=== PATIENT | male | born 1960 | race Caucasian/White ===

== ENCOUNTER 2016-10-22 22:51 | Emergency (ER) | payer OTHER ==
[2016-10-22] MEDS ORDERED: SUBLIMAZE 100 MCG/2 ML IM ONE (23:13)
[2016-10-22] MEDS ORDERED: BENADRYL 50 MG/ML IM ONE (23:13)
--- NOTE | 2016-10-22 23:19 | ERPHSYRPT ---
- History of Present Illness Time Seen by Provider: 10/22/16 23:14 Source: patient, family Exam Limitations: no limitations Patient Subjective Stated Complaint: pt states he had spinal stimulator implanted on 08/27/[address] rush in [facility]. states he was released to go back to work on 10/06/16 and his pain has been increasing since then Triage Nursing Assessment: pt alert and oriented, answers questions approp. skin pink warm and dry. respirations nonlabored with lungs cta. pt states that he has been feeling like his legs are weak. pt able to lift legs off the bed without diff. cap refill and pedal pulses wnl bilat. +1 nonpitting edema noted to bilat ankles and feet. Physician History: pt states he had spinal stimulator implanted on 08/27/[address] rush in [facility]. states he was released to go back to work on 10/06/16 and his pain has been increasing since then. pt states that he has been feeling like his legs are weak. pt able to lift legs off the bed without diff. Timing/Duration: day(s) Quality: burning Back Pain Radiation: feet Severity of Pain-Max: severe Severity of Pain-Current: severe Modifying Factors: Improves With: nothing Associated Symptoms: denies symptoms Allergies/Adverse Reactions: Penicillins Allergy (Severe, Verified 05/27/15 07:38) Hives zolpidem [From Ambien] Adverse Reaction (Verified 10/22/16 23:05) Home Medications: Levothyroxine Sodium 100 Mcg [Synthroid 100 Mcg] 100 mcg PO DAILY 10/31/13 [History] Rosuvastatin Calcium [Crestor] 10 mg PO HS 10/31/13 [History] Gabapentin [Neurontin] 300 mg PO TID 12/18/15 [History] Desvenlafaxine Succinate [Pristiq ER] 50 mg PO HS 10/22/16 [History] Eszopiclone [Lunesta] 3 mg PO HS PRN PRN 10/22/16 [History] Lisinopril 5 mg [Zestril 5 MG] 5 mg PO DAILY 10/22/16 [History] Hx Tetanus, Diphtheria Vaccination/Date Given: Yes Hx Influenza Vaccination/Date Given: Yes Hx Pneumococcal Vaccination/Date Given: No Immunizations Up to Date: Yes - Review of Systems Constitutional: No Symptoms Eyes: No Symptoms Ears, Nose, & Throat: No Symptoms Respiratory: No Symptoms Cardiac: No Symptoms Abdominal/Gastrointestinal: No Symptoms Genitourinary Symptoms: No Symptoms Musculoskeletal: Back Pain Skin: No Symptoms Neurological: Parasthesia Psychological: Anxiety, Depression - Past Medical History Pertinent Past Medical History: Yes Neurological History: No Pertinent History ENT History: No Pertinent History Cardiac History: High Cholesterol, Hypertension Respiratory History: Bronchitis Endocrine Medical History: Hypothyroidism Musculoskeletal History: Other GI Medical History: No Pertinent History History: No Pertinent History Psycho-Social History: No Pertinent History Male Reproductive Disorders: No Pertinent History Other Medical History: 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 lt si joint repaired, spinal stimlator implanted 08/27/16 - Social History Smoking Status: Never smoker Exposure to second hand smoke: No Drug Use: none Patient Lives Alone: No - Nursing Vital Signs Temperature: 97.7 F Temperature Source: Oral Pulse Rate: 66 Respiratory Rate: 18 Pain Intensity: 7 - Physical Exam General Appearance: mild distress Eye Exam: PERRL/EOMI Ears, Nose, Throat Exam: normal ENT inspection Neck Exam: normal inspection Respiratory Exam: normal breath sounds Back Exam: decreased range of motion, muscle spasm Neurologic Exam: sensory deficit, depressed mood/affect Skin Exam: normal color SpO2: 99 Oxygen Delivery: Room Air - Course Nursing assessment & vital signs reviewed: Yes Ordered Tests: Medication Summary Generic Name Dose Route Start Last Admin Trade Name Freq PRN Reason Stop Dose Admin Diphenhydramine HCl 50 mg 10/22/16 23:13 Benadryl 50 Mg/Ml IM 10/22/16 23:14 STAT ONE Fentanyl Citrate 100 mcg 10/22/16 23:13 Sublimaze 100 Mcg/2 Ml IM 10/22/16 23:14 STAT ONE - Progress Progress: improved, pain not gone completely Counseled pt/family regarding: diagnosis, need for follow-up - Departure Time of Disposition: 23:17 Departure Disposition: Home Clinical Impression: Chronic back pain greater than 3 months duration Sciatica neuralgia Qualifiers: Laterality: left Qualified Code(s): M54.32 - Sciatica, left side Condition: Stable Critical Care Time: No Referrals: MARGARET FRASER MD [Primary Care Provider] - Instructions: Low Back Pain Additional Instructions: Please follow the instructions given to you. Please take your medication as prescribed if given. If symptoms recur or get worse, come back to the emergency room if you cannot reach your primary care physician, or call your primary care physician for an appointment. Again if your symptoms get worse, come back to the emergency room. Thanks for visiting emergency room, and let us take care of you.
[2016-10-22] MEDS ORDERED: SUBLIMAZE 100 MCG/2 ML ONE (23:26)
[2016-10-22] MEDS ORDERED: BENADRYL 50 MG/ML ONE (23:26)
[2016-10-23 00:08] VITALS: BP 116/75; PULSE 61; O2SAT 98
== END 2016-10-23 00:11 | disposition home or self-care (01) ==
LOC: ED 22:51
DX: M54.32 Sciatica, left side (principal); M54.9 Dorsalgia, unspecified; G89.29 Other chronic pain; Z79.899 Other long term (current) drug therapy
CPT/HCPCS: 96372; 99284; J1200; J3010

== ENCOUNTER 2017-12-01 17:40 | Emergency (ER) | payer OTHER ==
--- NOTE | 2017-12-01 18:01 | ERPHSYRPT ---
- History of Present Illness Source: patient Exam Limitations: no limitations Patient Subjective Stated Complaint: Swelling in legs, vomiting, weakness Triage Nursing Assessment: Pt presents to the ED with complaints of bilateral leg swelling, sweakness, facial swelling, and vomiting. Pt states he was seen by PCP for complaint and was given lasix. Pt states improvement in symptoms after lasix. pitting edema noted to bilateral ankles and feet, pt states "mild compared to yesterday." No distress noted. Hx Tetanus, Diphtheria Vaccination/Date Given: Yes Hx Influenza Vaccination/Date Given: Yes Hx Pneumococcal Vaccination/Date Given: No Immunizations Up to Date: Yes <JAMES NOONAN - Last Filed: 12/01/17 18:31> <LENORA LOPEZ - Last Filed: 12/01/17 20:13> - History of Present Illness Time Seen by Provider: 12/01/17 17:58 Physician History: mild to mod edema bilateral extremities and face for a few days getting worse, hx lasix, +MONTEIRO and fatigue, no pain, hx htn (JAMES NOONAN) Allergies/Adverse Reactions: Penicillins Allergy (Severe, Verified 05/27/15 07:38) Hives zolpidem [From Ambien] Adverse Reaction (Verified 10/22/16 23:05) Home Medications: Levothyroxine Sodium 100 Mcg [Synthroid 100 Mcg] 100 mcg PO DAILY 10/31/13 [History] Rosuvastatin Calcium [Crestor] 10 mg PO HS 10/31/13 [History] Furosemide 20 mg [Lasix 20 mg] 20 mg PO DAILY 12/01/17 [History] Nebivolol HCl 5 MG [Bystolic 5 MG] 5 mg PO DAILY 12/01/17 [History] - Review of Systems Constitutional: Fatigue, No Fever Eyes: No Eye Redness Ears, Nose, & Throat: No Throat Pain Respiratory: Dyspnea on Exertion (MONTEIRO), No Cyanosis, No Stridor Cardiac: No Chest Pain Abdominal/Gastrointestinal: No Abdominal Pain Skin: No Rash Neurological: No Dizziness <JAMES NOONAN - Last Filed: 12/01/17 18:31> - Past Medical History Pertinent Past Medical History: Yes Neurological History: No Pertinent History ENT History: No Pertinent History Cardiac History: High Cholesterol, Hypertension Respiratory History: Bronchitis Endocrine Medical History: Hypothyroidism Musculoskeletal History: Other GI Medical History: No Pertinent History History: No Pertinent History Psycho-Social History: No Pertinent History Male Reproductive Disorders: No Pertinent History Other Medical History: 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 lt si joint repaired, spinal stimlator implanted 08/27/16 - Social History Smoking Status: Never smoker Exposure to second hand smoke: No Drug Use: none Patient Lives Alone: No <JAMES NOONAN - Last Filed: 12/01/17 18:31> - Physical Exam General Appearance: no apparent distress Eye Exam: PERRL/EOMI Ears, Nose, Throat Exam: normal pharynx Neck Exam: normal inspection Respiratory Exam: normal breath sounds Cardiovascular/Chest Exam: normal heart sounds, regular rate/rhythm Abdominal/Gastrointestinal Exam: soft, No tenderness Extremity Exam: swelling Neurologic Exam: alert, oriented x 3, cooperative Skin Exam: normal color, warm, dry SpO2 Interpretation: normal SpO2: 100 Oxygen Delivery: Room Air <JAMES NOONAN - Last Filed: 12/01/17 18:31> - Nursing Vital Signs Nursing Vital Signs: Initial Vital Signs Temperature 97.5 F 12/01/17 17:52 Pulse Rate 60 12/01/17 17:52 Respiratory Rate 16 12/01/17 17:52 Blood Pressure 131/64 12/01/17 17:52 O2 Sat by Pulse Oximetry 100 12/01/17 17:52 Pain Scale Pain Intensity 0 - Course Nursing assessment & vital signs reviewed: Yes EKG Interpreted by Me: RATE (53 bpm), Sinus [place], NORMAL AXIS, Other (EKG: Sinus bradycardia, 53 beats for minute, normal axis, no acute ST or T wave changes noted) - Radiology Exams Chest X-ray Interpretation: Interpreted by me, Negative, Other (no acute disease process noted) <LENORA LOPEZ - Last Filed: 12/01/17 20:13> Ordered Tests: Active Orders 24 hr Category Date Time Status Bookkeeper Assistant STAT Care 12/01/17 17:56 Active EKG-ER Only STAT Care 12/01/17 17:55 Active IV Insertion STAT Care 12/01/17 17:55 Active CHEST 1 VIEW (PORTABLE) Stat Exams 12/01/17 17:56 Taken CBC W DIFF Stat Lab 12/01/17 18:27 Completed CK-Creatinine Phosphokinase Routine Lab 12/01/17 18:27 Completed CMP Routine Lab 12/01/17 18:27 Completed D-DIMER QUANTITATION Stat Lab 12/01/17 18:27 Completed NT PRO BNP Routine Lab 12/01/17 18:27 Completed PROTIME WITH INR Stat Lab 12/01/17 18:27 Completed TROPONIN Q3H Lab 12/01/17 18:27 Completed TROPONIN Q3H Lab 12/01/17 21:00 Ordered TROPONIN Q3H Lab 12/02/17 00:00 Ordered TROPONIN Q3H Lab 12/02/17 03:00 Ordered TROPONIN Q3H Lab 12/02/17 06:00 Ordered TSH [TSH, 3RD Generation] Stat Lab 12/01/17 20:04 Ordered Urine Triage Profile Stat Lab 12/01/17 17:56 Ordered Lab/Rad Data: Laboratory Result Diagrams 12/01/17 18:27 12/01/17 18:27 Laboratory Results 12/01/17 12/01/17 12/01/17 Range/Units 18:27 18:27 18:27 WBC 4.0 (4.0-10.5) K/mm3 RBC 4.48 (4.1-5.6) M/mm3 Hgb 13.8 (12.5-18.0) gm/dl Hct 40.7 L (42-50) % MCV 90.8 (78-100) fl MCH 30.8 (26-32) pg MCHC 33.9 (32-36) g/dl RDW 14.4 H (11.5-14.0) % Plt Count 168 (150-450) K/mm3 MPV 12.3 H (6-9.5) fl Gran % 50.9 (36.0-66.0) % Eos # (Auto) 0.14 (0-0.5) Absolute Lymphs (auto) 1.47 (1.0-4.6) Absolute Monos (auto) 0.34 (0.0-1.3) Lymphocytes % 36.6 (24.0-44.0) % Monocytes % 8.5 (0.0-12.0) % Eosinophils % 3.5 (0.00-5.0) % Basophils % 0.5 (0.0-0.4) % Absolute Granulocytes 2.05 (1.4-6.9) Basophils # 0.02 (0-0.4) PT 11.1 (8.83-12.87) SECONDS INR 0.95 (0.8-3.0) D-Dimer 440.90 (215-500) ng/mL Sodium 140 (137-145) mmol/L Potassium 4.3 (3.5-5.1) mmol/L Chloride 105 (98-107) mmol/L Carbon Dioxide 26 (22-30) mmol/L Anion Gap 13.8 (5-15) MEQ/L BUN 10 (9-20) mg/dL Creatinine 0.97 (0.66-1.25) mg/dL Estimated GFR > 60.0 ML/MIN Glucose 94 (74-106) mg/dL Calcium 9.1 (8.4-10.2) mg/dL Total Bilirubin 1.50 H (0.2-1.3) mg/dL AST 41 (17-59) U/L ALT 44 (0-50) U/L Alkaline Phosphatase 57 (38-126) U/L Creatine Kinase 161 (55-170) U/L Troponin I < 0.012 (0.000-0.034) ng/mL NT-Pro-B Natriuret Pep 47.7 (0-900) pg/mL Serum Total Protein 6.7 (6.3-8.2) g/dL Albumin 4.0 (3.5-5.0) g/dL <JAMES NOONAN - Last Filed: 12/01/17 18:31> - Progress Progress: improved Air Movement: fair <LENORA LOPEZ - Last Filed: 12/01/17 20:13> - Progress Progress Note: 12/01/17 18:[address] Lopez at 19:00 (JAMES NOONAN) 12/01/17 20:06 This is a 57-year-old white male whose care was transferred to md at 1900 today patient initially seen by Dr. Noonan. Patient arrives with complaint of swelling in his lower extremity swelling in his face shortness of breath with activity going on for 2-3 days patient has been on Lasix which was prescribed to him by his family doctor and he has an appointment at 9:30 tomorrow morning patient is not having chest pain patient with edema to his lower extremities noted by Dr. Nonoan on physical exam Past medical history on this patient includes hypercholesterolemia high blood pressure bronchitis hypothyroidism, leg calf perc disease Past surgical history includes neck surgery back surgery carpal tunnel surgery rotator cuff surgery left SI joint, and spinal stimulator Physical examination reveals well-developed well-nourished white male he is alert oriented 3 Head is atraumatic normocephalic. Eyes PERRLA EOMI fundi are unremarkable. Ears TMs wright intact bilaterally. Nose is clear. Throat is clear. Neck is supple full range of motion. Lungs clear to auscultation and equal bilaterally. Heart bradycardic no murmur peripheral pulses 2 over 4 upper and lower bilaterally. Abdomen soft nontender nondistended positive bowel sounds. Extremities full range of motion pulse equal and symmetrical 2 over 4 perhaps a trace of edema on physical exam lower extremities and ankles (patient states this is markedly improved after elevation of the legs during evaluation) Neuro patient alert oriented 3 cranial nerves II through XII are intact DTRs symmetrical 2 over 4 Glascow coma scale 15 speech is normal. Labs CBC White blood cell count 4.0 hemoglobin 13.8 hematocrit 40.7 chemistry sodium 140 potassium 4.3 chloride 105 bicarbonate 26 BUN 10 creatinine 0.97 glucose 94 troponin less than 0.012 BNP 47.7 d-dimer normal 440 EKG sinus bradycardia 53 bpm otherwise normal EKG no acute ST or T wave changes are noted. Chest x-ray unremarkable. Impression peripheral edema. Exercise intolerance. Bradycardia. Plan patient is on thyroid medications at home also on Lasix. I have offered to give him an injection of Lasix here in the emergency room however he does feel like he is markedly improved and really doesn't want this at this time he states he would prefer to receive this from his family doctor. I have ordered a TSH on this patient. Will have patient follow-up with his family doctor tomorrow morning. Currently the patient is in no distress he is breathing well vitals are stable he has no acute findings on his chest x-ray EKG or labs. Patient does want work slip for [employer] we'll provide this as well as tomorrow morning to facilitate seeing his family doctor. (LENORA LOPEZ) <JAMES NOONAN - Last Filed: 12/01/17 18:31> - Departure Time of Disposition: 20:12 Departure Disposition: Home Critical Care Time: No <LENORA LOPEZ - Last Filed: 12/01/17 20:13> - Departure Clinical Impression: Peripheral edema, Exercise intolerance, History of hypothyroidism, Dependent edema Condition: Fair Referrals: MARGARET FRASER MD [Primary Care Provider] - Additional Instructions: Return home. Rest. Medications as prescribed by your family doctor. Follow-up with your family doctor tomorrow morning as scheduled. Return for acute distress or for severe symptoms.
[2017-12-01 18:38] LABS: BASOPHIL % 0.5 % (0.0-0.4); Basophil (Absolute #) 0.02 (0-0.4); Eosinophil % 3.5 % (0.00-5.0); Eosinophil (Absolute #) 0.14 (0-0.5); Granulocyte Absolute (ANC) 2.05 (1.4-6.9); Granulocytes % 50.9 % (36.0-66.0); Hematocrit 40.7 % (42-50); Hemoglobin 13.8 gm/dl (12.5-18.0); Lymphocyte (Absolute #) 1.47 (1.0-4.6); Lymphocytes % 36.6 % (24.0-44.0); Mean Cell Volume 90.8 fl (78-100); Mean Corpuscular Hemoglobin 30.8 pg (26-32); Mean Corpuscular Hgb Concent. 33.9 g/dl (32-36); Mean Platelet Volume 12.3 fl (6-9.5); Monocyte (Absolute #) 0.34 (0.0-1.3); Monocytes % 8.5 % (0.0-12.0); Platelet Count 168 K/mm3 (150-450); Red Blood Count 4.48 M/mm3 (4.1-5.6); Red Cell Distribution Width 14.4 % (11.5-14.0)
[2017-12-01 18:42] LABS: INR 0.95 (0.8-3.0)
[2017-12-01 18:44] LABS: D-DIMER QUANTITATION 440.9 ng/mL (215-500)
[2017-12-01 18:46] LABS: ALKALINE PHOSPHATASE 57 U/L (38-126); ANION GAP 13.8 MEQ/L (5-15); BLOOD UREA NITROGEN 10 mg/dL (9-20); CHLORIDE 105 mmol/L (98-107); CK-Creatinine Phosphokinase 161 U/L (55-170); Calcium 9.1 mg/dL (8.4-10.2); Carbon Dioxide 26 mmol/L (22-30); Creatinine 1 0.97 mg/dL (0.66-1.25); Glucose 94 mg/dL (74-106); Potassium 4.3 mmol/L (3.5-5.1); SGOT/AST 41 U/L (17-59); SGPT/ALT 44 U/L (0-50); SODIUM 140 mmol/L (137-145); Total Protein 6.7 g/dL (6.3-8.2)
[2017-12-01 18:58] LABS: NT PRO BNP 47.7 pg/mL (0-900)
[2017-12-01 19:05] LABS: TROPONIN < 0.012 ng/mL (0.000-0.034)
[2017-12-01 19:25] VITALS: O2SAT 100
[2017-12-01 20:17] VITALS: BP 138/78; PULSE 48
--- NOTE | 2017-12-02 08:38 | XRAY ---
Indication: Vomiting and dyspnea on exertion. Comparison: June 19, 2013. Portable chest again demonstrates normal heart and lungs. Bony thorax intact again with mild degenerative changes, old right 2nd rib fracture, lower cervical fusion, and new spinal stimulator leads terminating T7 level. Impression: Nonacute chest with chronic features.
== END 2017-12-01 20:25 | disposition home or self-care (01) ==
LOC: ED 17:40
DX: R60.0 Localized edema (principal); R06.02 Shortness of breath; R00.1 Bradycardia, unspecified; Z79.899 Other long term (current) drug therapy; Z86.39 Personal history of other endocrine, nutritional and metabolic disease
CPT/HCPCS: 36000; 36415; 71045; 80053; 82550; 83880; 84443; 84484; 85025; 85379; 85610; 93005; 93041; 99283; 99284

== ENCOUNTER 2022-01-27 09:27 | Emergency (ER) | payer OTHER ==
[2022-01-27 09:47] VITALS: PULSE 62; O2SAT 99
--- NOTE | 2022-01-27 10:05 | XRAY ---
Exam: 3 view right ankle series. Comparison: [None.] Indication: 61-year-old male fell and twisted right ankle; pain. Findings: AP, oblique, and lateral radiographs the right ankle were obtained. There is a transverse fracture of the distal tip of the right fibula with about 3 mm diastasis. There is marked soft tissue swelling overlying lateral malleolus. No other fracture or dislocation is seen. The right ankle mortise is well-preserved and appears uniform. The right hindfoot appears unremarkable. Impression: 1. There is a transverse fracture of the inferior tip of the right fibula, as discussed above. Significant soft tissue swelling overlies the lateral malleolus.
--- NOTE | 2022-01-27 10:44 | ERPHSYRPT ---
- History of Present Illness Time Seen by Provider: 01/27/22 09:55 Source: patient Exam Limitations: no limitations Patient Subjective Stated Complaint: Patient is here with a right ankle injury. States he was playing golf and injured it in a ditch that he didn't see. States, "I heard it pop." This happened today just prior to coming into the ED. Triage Nursing Assessment: Patient brought back to the ED in a wheelchair. He was able to transfer self from w/c to bed but is unable to put weight on his right foot. He is alert and oriented and answering questions appropriately. Right outer ankle is swollen. No bruising noted at this time. Pedal pulse present. Physician History: This is a 61-year-old white male who was golfing this morning and when he stepped out of a cart he rolled his right ankle. He felt and heard a pop sensation and had immediate pain and swelling in his right ankle, lateral aspect. Occurred: just prior to arrival Quality: constant, aching, throbbing Severity of Pain-Max: moderate Severity of Pain-Current: moderate Lower Extremities Pain: ankle: right Modifying Factors: Improves With: movement Associated Symptoms: popping sensation, other (Can bear weight but hurts to do so) Allergies/Adverse Reactions: Penicillins Allergy (Severe, Verified 01/27/22 09:34) Hives zolpidem [From Ambien] Adverse Reaction (Verified 01/27/22 09:34) Home Medications: Levothyroxine Sodium 100 Mcg [Synthroid 100 Mcg] 100 mcg PO DAILY 10/31/13 [History] Rosuvastatin Calcium [Crestor] 10 mg PO HS 10/31/13 [History] Furosemide 20 mg [Lasix 20 mg] 20 mg PO DAILY 12/01/17 [History] Nebivolol HCl 5 MG [Bystolic 5 MG] 5 mg PO DAILY 12/01/17 [History] Oxycodone HCl [Oxycontin] 1 tab PO BID 01/27/22 [History] Hx Tetanus, Diphtheria Vaccination/Date Given: Yes Hx Influenza Vaccination/Date Given: No Hx Pneumococcal Vaccination/Date Given: No Immunizations Up to Date: Yes Travel Risk - International Travel Have you traveled outside of the country in past 3 weeks: No - Coronavirus Screening Are you exhibiting any of the following symptoms?: No Close contact with a COVID-19 positive Pt in past 14-21 Days: No - Vaccine Status Have you recieved a Covid-19 vaccination: Yes 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: [employer] - Vaccination Dates Date of 2cond Vaccination (if applicable): 2020 - Review of Systems Constitutional: No Symptoms Eyes: No Symptoms Ears, Nose, & Throat: No Symptoms Respiratory: No Symptoms Cardiac: No Symptoms Abdominal/Gastrointestinal: No Symptoms Genitourinary Symptoms: No Symptoms Musculoskeletal: Fall (Right ankle), Injury (Right ankle) Skin: No Symptoms Neurological: No Symptoms Psychological: No Symptoms Endocrine: No Symptoms Hematologic/Lymphatic: No Symptoms Immunological/Allergic: No Symptoms All Other Systems: Reviewed and Negative - Past Medical History Pertinent Past Medical History: Yes Neurological History: No Pertinent History ENT History: No Pertinent History Cardiac History: High Cholesterol, Hypertension Respiratory History: Bronchitis Endocrine Medical History: Hypothyroidism Musculoskeletal History: Other GI Medical History: No Pertinent History History: No Pertinent History Psycho-Social History: No Pertinent History Male Reproductive Disorders: No Pertinent History Other Medical History: HAD BONE DISEASE WHEN 5 YEARS OLD DETERORITED L HIP BONE, chronic back pain with stimulator implanted on 08/27/16 - Past Surgical History Past Surgical History: Yes Neuro Surgical History: No Pertinent History Cardiac: No Pertinent History Respiratory: No Pertinent History Gastrointestinal: No Pertinent History Genitourinary: No Pertinent History Musculoskeletal: Orthopedic Surgery, Other Male Surgical History: No Pertinent History Other Surgical History: NECK, BACK, CARPAL TUNNEL, ROTATOR CUFF Lt. lt si joint repaired, spinal stimlator implanted 08/27/16 - Social History Smoking Status: Never smoker Exposure to second hand smoke: No Drug Use: none Patient Lives Alone: No - Nursing Vital Signs Nursing Vital Signs: Initial Vital Signs Temperature 97.5 F 01/27/22 09:35 Pulse Rate 62 01/27/22 09:35 Respiratory Rate 20 01/27/22 09:35 Blood Pressure 179/122 01/27/22 09:35 O2 Sat by Pulse Oximetry 99 01/27/22 09:35 Pain Scale Pain Intensity 7 - Physical Exam General Appearance: no apparent distress, alert, obese Eyes, Ears, Nose, Throat Exam: normal ENT inspection, moist mucous membranes Neck Exam: normal inspection, non-tender, supple, full range of motion Cardiovascular/Respiratory Exam: chest non-tender, no respiratory distress Gastrointestinal/Abdominal Exam: non-tender Back Exam: normal inspection Hips Exam: bilateral: non-tender, normal inspection, normal range of motion, no evidence of injury Legs Exam: bilateral leg: non-tender, normal inspection, normal range of motion, no evidence of injury Knees Exam: bilateral knee: non-tender, normal inspection, normal range of motion, no evidence of injury Ankle Exam: right ankle: bone tenderness, limited range of motion, soft tissue tenderness, other, left ankle: non-tender, normal inspection, normal range of motion, no evidence of injury Foot Exam: bilateral foot: non-tender, normal inspection, normal range of motion, no evidence of injury Neuro/Tendon Exam: normal sensation, normal motor functions, normal tendon functions, responds to pain, no evidence tendon injury Mental Status Exam: alert, oriented x 3 Skin Exam: normal color, warm, dry SpO2 Interpretation: normal SpO2: 99 O2 Delivery: Room Air - Course Nursing assessment & vital signs reviewed: Yes Ordered Tests: Active Orders 24 hr Category Date Time Status ANKLE (3 VIEWS) Routine Exams 01/27/22 09:55 Completed - Progress Progress: unchanged Progress Note: 01/27/22 10:43 X-ray right ankle shows distal fibula with nondisplaced transverse fracture Medical decision making: We were able to obtain an appointment with [facility] orthopedic clinic today. Patient will be transported via wheelchair to their clinic. They will make the final decision on casting versus splinting and final disposition. Patient is on twice a day oxycodone. Counseled pt/family regarding: diagnosis, need for follow-up, rad results - Departure Departure Disposition: Home Clinical Impression: Closed fracture of right distal fibula Condition: Stable Critical Care Time: No Referrals: MARGARET FRASER MD [Primary Care Provider] - Follow up/PCP as directed
[2022-01-27 10:48] VITALS: BP 123/81
== END 2022-01-27 10:52 | disposition home or self-care (01) ==
LOC: ED 09:27
DX: S82.424A Nondisplaced transverse fracture of shaft of right fibula, initial encounter for closed fracture (principal); X50.0XXA Overexertion from strenuous movement or load, initial encounter; Y93.53 Activity, golf; Y92.39 Other specified sports and athletic area as the place of occurrence of the external cause; M25.571 Pain in right ankle and joints of right foot; E78.5 Hyperlipidemia, unspecified; I10 Essential (primary) hypertension; Z79.891 Long term (current) use of opiate analgesic; Z79.899 Other long term (current) drug therapy
CPT/HCPCS: 73610; 99282

== ENCOUNTER 2022-01-29 07:42 | Day surgery (SDC) | payer OTHER ==
[~2022-01-29 07:42] MED LIST: Lactated Ringers 1,000 ML IV ONE; XYLOCAINE 1% HCL 20 ML MDV ONE
[2022-01-29] MEDS ORDERED: CLINDAMYCIN-D5W 900 MG/50 ML*** 900 MG/50 ML BAG IV SCH (08:00)
[2022-01-29] MEDS ORDERED: Lactated Ringers 1,000 ML IV SCH (08:00)
[2022-01-29] MEDS ORDERED: Zemuron 100 MG/10 ML ONE (10:12)
[2022-01-29] MEDS ORDERED: DIPRIVAN 200 MG/20 ML IV ONE ×2 (10:12→10:13)
[2022-01-29] MEDS ORDERED: Xylocaine-Mpf 2% 5 Ml Vial ONE (10:12)
[2022-01-29] MEDS ORDERED: Zofran 4 MG/2 ML VIAL ONE (10:12)
[2022-01-29] MEDS ORDERED: Decadron 4 MG INJ ONE (10:12)
[2022-01-29] MEDS ORDERED: Quelicin Fliptop 200 MG/10 ML ONE (10:12)
[2022-01-29] MEDS ORDERED: DEXMEDETOMIDINE 80 MCG/20ML-NS IV ONE (10:12)
[2022-01-29] MEDS ORDERED: Versed 2 MG/2 ML Injection ONE (10:13)
[2022-01-29] MEDS ORDERED: SUBLIMAZE 250 MCG/5 ML ONE (10:13)
[2022-01-29] MEDS ORDERED: OFIRMEV 100 ML IV ONE (10:19)
[2022-01-29] MEDS ORDERED: Pre-Attached Lta Kit TP ONE (10:19)
[2022-01-29] MEDS ORDERED: Ephedrine Sulfate 50 MG/ML ONE (10:33)
[2022-01-29] MEDS ORDERED: ATROPINE SULFATE 1MG ONE (11:01)
[2022-01-29 12:54] VITALS: PULSE 57
[2022-01-29 13:06] VITALS: BP 138/77; O2SAT 97
--- NOTE | 2022-01-29 21:14 | XRAY ---
Exam: Intraoperative C-arm images of the right ankle from 01/29/2022. Comparison: Right ankle radiographs including stress views from 01/27/2022 at 12:12 PM. Indication: Open reduction internal fixation of right ankle; syndesmosis surgery. Findings: 1 minute and 16 seconds of intraoperative fluoroscopy time was utilized. 14 intraoperative C-arm images were obtained. Final AP, internal oblique, and lateral C-arm images of the right ankle reveal a short curved orthopedic sideplate fixed to the distal right fibula by 4 threaded screws. The most proximal screw and the most distal screw are short. The middle 2 screws are long and transverse the fibula and extend across the syndesmosis and the majority of the distal right tibia shaft. The right ankle mortise appears essentially unremarkable on AP image. I again see a small avulsion fracture injury of the inferior tip of the distal right fibula. Mild soft tissue swelling also overlies the lateral malleolus. Impression: 1. As above.
--- NOTE | 2022-02-02 08:50 | OP ---
SURGERY DATE/TIME: 01/29/2022 1018 PREOPERATIVE DIAGNOSES: 1) Acute disruption of syndesmosis right ankle. 2) Rotational ankle injury. 3) Avulsion of fibula distal tip. 4) Ankle instability. POSTOPERATIVE DIAGNOSES: 1) Acute disruption of syndesmosis right ankle. 2) Rotational ankle injury. 3) Avulsion of fibula distal tip. 4) Ankle instability. PROCEDURE: Open reduction internal fixation of syndesmosis right ankle. SURGEON: Declan Ramachandran DPM. TERRAZZO LAYER: None. ANESTHESIA: General plus a postoperative local block. HEMOSTASIS: Thigh tourniquet set to 300 mm of Mercury for 25 minutes. ESTIMATED BLOOD LOSS: Less than 5 cc. MATERIALS: 2-0 Vicryl, 3-0 Nylon and a Geovani one-third tubular plate with a number of nonlocking screws. INJECTABLES: 30 cc of 1:1 mixture of 1% lidocaine plain and 0.5% bupivacaine plain injected in a V-block type incision to the patient's lateral right ankle. INDICATION FOR PROCEDURE: Christiano is a very pleasant 61-year-old male who presented to my office after referral from the emergency department soon after injury while the patient was golfing. The patient indicates that he stepped out of his golf cart and into an embankment where he rolled his ankle. He felt a popping sensation in his ankle medially and felt significant instability. The patient was not able to bear weight with this extremity and presented to the emergency department where he was diagnosed simply with a fibular fracture which appeared to be an avulsion at the distal tip. The patient indicates he felt a popping sensation at the anterior aspect of his ankle as well. While he was in the clinic stress views were obtained demonstrating some gapping in the syndesmosis and a significant amount of pain with external rotation as well as positive gravity stress testing. At this time, the patient understands the objective is to not necessarily repair the bone however assist the ligament between the tibia and the fibula to heal back into its anatomic position. Plenty of time was allowed for the patient to ask questions which were answered to the patient's satisfaction. No guarantees were provided as to the outcome of surgical intervention. It is with that we decided to proceed. The patient was brought into the OR and placed on the OR table in the supine position. At this time, a well-padded thigh tourniquet was applied to the patient's right thigh and the tourniquet was set to 300 mm of Mercury. At this time, the right lower extremity was prepped and draped in the typical sterile fashion. At this time under fluoroscopic guidance, the anterior border of the fibula was identified and an incision was made posterior to this line at the central aspect of the fibula in the lateral view. Under fluoroscopic guidance, a stress view was once again performed and hook test was performed demonstrating some gapping between the tibiofibular articulation. At this time, an incision was made utilizing a 15 blade being careful along the way not to damage any neurovascular structures along the way down to the level of the bone where significant amount of hematoma was found at the anterior talofibular ligament which was ruptured as well as significant hematoma within the ankle joint. At this time, attention was directed to the incisura where the hematoma was cleaned out. A dental pick was utilized as well as rongeur. Following this, a 4-hole plate was introduced at the lateral aspect in the posterior orientation approximately 40 degrees from the tibiofibular access and at this time a distal and proximal cortical screw was introduced. Following this a bone clamp was placed at the most distal screw head as well as the anterior one-third of the medial malleolus and compressed utilizing slightly enough pressure to close down the syndesmosis. At this time, a 60 and a 65 mm nonlocking fully threaded screw introduced 30 degrees relative to the tibiofibular access in order to gain purchase within the syndesmosis. Following this, copious amounts of sterile saline were used to flush the surgical site. Stress views were then taken once again demonstrating that there was no longer any gapping of the syndesmosis. In addition to this, the lateral ankle loading of the deltoid was stressed deeming no instability from that standpoint. Following this, the incision was then coapted utilizing 2-0 Vicryl and 3-0 Nylon. A dressing consisting of Betadine, Adaptic, 4x4, Kerlix and a well-padded posterior splint was applied to the patient's right lower extremity. Following this, the patient was returned to the postoperative anesthesia care unit with vital signs stable and vascular status intact. The patient handled the anesthesia as well as the procedure without complication. Postoperative orders as indicated in the patient's discharge chart.
== END 2022-01-29 13:10 | disposition home or self-care (01) ==
LOC: SDC 07:42
PROVIDERS: ATTEND Podiatrist Foot & Ankle Surgery
DX: S82.831A Other fracture of upper and lower end of right fibula, initial encounter for closed fracture (principal); S99.811A Other specified injuries of right ankle, initial encounter; M25.371 Other instability, right ankle; S93.04XA Dislocation of right ankle joint, initial encounter
CPT/HCPCS: 27792; 27829; 73630; 76000; J0330; J0461; J1100; J2250; J2405; J2704; J3010